=== PATIENT | male | born 1985 | race Caucasian/White ===

== ENCOUNTER 2016-12-06 03:38 | Emergency (ER) | payer OTHER ==
[2016-12-06 03:48] VITALS: TEMP 95
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
[2016-12-06 04:57] VITALS: BP 124/76; PULSE 84; RESP 16
== END 2016-12-06 04:57 | disposition home or self-care (01) ==
LOC: EC 03:38
DX: Z77.21 Contact with and (suspected) exposure to potentially hazardous body fluids (principal); F17.200 Nicotine dependence, unspecified, uncomplicated
CPT/HCPCS: 86704; 86803; 87340; 87389; 99282

== ENCOUNTER 2016-12-10 20:10 | Emergency (ER) | payer OTHER ==
[2016-12-10 22:03] LABS: Hepatitis C Virus IgG Index 0.03
[2016-12-10 22:13] LABS: Hepatitis B Surface Antibody POSITIVE (Negative); Hepatitis C Virus IgG Ab Negative (Negative)
[2016-12-12 07:23] LABS: HIV-1/HIV-2 Ab Screen NONREAC (NON REAC)
== END 2016-12-10 23:59 ==
LOC: EC 20:10
DX: Z77.21 Contact with and (suspected) exposure to potentially hazardous body fluids (principal)
CPT/HCPCS: 36415; 86706; 86803; 87389

== ENCOUNTER 2022-06-30 15:41 | Emergency (ER) | payer OTHER ==
[2022-06-30 15:45] VITALS: BP 138/87; PULSE 70; RESP 18; TEMP 98.3
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
--- NOTE | 2022-06-30 16:49 | XR ---
EXAMINATION TYPE: XR shoulder complete RT DATE OF EXAM: 06/30/2022 COMPARISON: NONE HISTORY: Pain TECHNIQUE: 3 views FINDINGS: I see no fracture nor dislocation. AC joint is intact no pathologic calcification. IMPRESSION: Negative right shoulder exam. No fracture seen.
== END 2022-06-30 17:05 | disposition home or self-care (01) ==
LOC: EC 15:41
DX: S46.811A Strain of other muscles, fascia and tendons at shoulder and upper arm level, right arm, initial encounter (principal); X50.9XXA Other and unspecified overexertion or strenuous movements or postures, initial encounter
CPT/HCPCS: 99283